=== PATIENT | female | born 1940 | race Caucasian/White ===

== ENCOUNTER 2023-05-05 15:57 | Emergency (ER) | payer MEDICARE, OTHER, SELFPAY ==
[2023-05-05 16:07] VITALS: BP 138/91; PULSE 100; RESP 18; TEMP 36.8; O2SAT 96; BMI 35.7
--- NOTE | 2023-05-05 16:52 | CT_ITS ---
The [address] [address] Patient Name: VAUGHN GERMAN MRN: [facility]:[id number] date: 1940 Sex: F Assigned Patient Location: ER Current Patient Location: ED.MAIN Accession/Order Number: [id number] Exam Date: 05/05/2023 16:48 Report Date: 05/05/2023 17:30 At the request of: ROC MCCALL Procedure: CT head/brain wo con EXAM: CT head/brain wo con HISTORY: head injury COMPARISON: None. TECHNIQUE: Unenhanced transaxial tomographic sections were obtained from the vertex through posterior fossa. FINDINGS: Diffuse age-related cerebral atrophy. 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 Mild bilateral chronic microvascular ischemic change. No midline shift, mass effect or intracranial hemorrhage. The mastoid air cells and visualized paranasal sinuses are clear. CT/CT head/brain wo con IMPRESSION: 1. No acute intracranial process. 2. 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 Mild bilateral chronic microvascular ischemic change. Electronically authenticated by: ABDI PENA Date: 05/05/2023 17:30
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
== END 2023-05-05 18:09 | disposition home or self-care (01) ==
PROVIDERS: Emergency Provider Emergency Medicine
DX: S09.8XXA Other specified injuries of head, initial encounter (principal); W22.8XXA Striking against or struck by other objects, initial encounter; Z87.891 Personal history of nicotine dependence
CPT/HCPCS: 70450; 99284

== ENCOUNTER 2024-10-29 12:58 | Outpatient (OUT) | payer MEDICARE, OTHER, SELFPAY ==
[2024-10-29 13:17] LABS: Hemoglobin 14.5 g/dL (12.0-16.0)
--- NOTE | 2024-10-29 14:19 | RT_ITS ---
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 Findings were considered accurate and reproducible. Both pre- and post-bronchodilator values utilized for spirometry. Spirometry (based on pre-bronchodilator values): -FEV1/FVC: Reduced @ 68% -FEV1: Normal @ 112% -FVC: Normal @ 120% -There is a positive bronchodilator resposne in LBF65-81%, but diagnostic and clinical significance is unclear. Lung volumes by plethysmography (based on pre-bronchodilator values): -RV: Normal @ 105% -TLC: Normal @ 107% Diffusion capacity: -DLCO: Moderate reduction @ 55% when corrected for Hb 14.5g/dL Flow-volume loop: -Mild obstructive pattern Impressions: Spirometry suggests mild obstruction. There is no significant bronchodilator response. Lung volumes are normal. There is a moderately reduced diffusion capacity. Overall study suggests COPD/emphysema. Clinica correlation required. Electronically Signed On 11-02-2024 10:12:00 EST by James Engle
[2024-10-29] MEDS: ALBUTEROL SULFATE 2.5 MG/3 ML VIAL NEB IH (14:20)
== END 2024-10-29 12:59 | disposition home or self-care (01) ==
LOC: CARD 12:58
PROVIDERS: PCP Internal Medicine; Visit Provider Family Medicine
DX: R05.3 Chronic cough (principal)
CPT/HCPCS: 36415; 85018; 94060; 94726; 94729

== ENCOUNTER 2024-12-20 07:35 | Outpatient (RCR) | payer MEDICARE, OTHER, SELFPAY ==
[2024-12-18 14:15] VITALS: BP 122/79; PULSE 71; TEMP 36.8; O2SAT 94
[2024-12-18] MEDS: ERTAPENEM SODIUM 1 GM, LIDOCAINE HCL/PF 3.2 ML IM (14:29)
[2024-12-19] MEDS: ERTAPENEM SODIUM 1 GM, LIDOCAINE HCL/PF 3.2 ML IM (17:40)
[2024-12-20 13:37] VITALS: BP 132/75; PULSE 76; TEMP 36.1; O2SAT 97
[2024-12-20] MEDS: ERTAPENEM SODIUM 1 GM, LIDOCAINE HCL/PF 3.2 ML IM (13:55)
--- NOTE | 2024-12-20 14:03 | PC.NURSE ---
Gabe Rogers called off last Friday (a week ago). He called off again on Friday and Friday this week. He had told me his leg was better swelling had decreased (this was last Friday) His reason for calling off today was his leg was swollen. I didn't get to talk with him but I wanted to let you know he was missing appts. His last dose should be 4/7, but that was before missing last 2 doses. 1:43 PM Message sent at 1:43 PM. 4 days left Message expires in 4 days. Message status isRkan Junior said still keep the same day, can you update me how it looks tomorrow? 1:46 PM Message sent at 1:46 PM. 4 days left Message expires in 4 days. You said ok
== END 2024-12-20 23:59 | disposition home or self-care (01) ==
LOC: INF 07:35
PROVIDERS: PCP Internal Medicine; Visit Provider Physician Assistant
DX: N39.0 Urinary tract infection, site not specified (principal); B96.1 Klebsiella pneumoniae [K. pneumoniae] as the cause of diseases classified elsewhere
CPT/HCPCS: 96372; J1335

== ENCOUNTER 2024-12-24 07:30 | Outpatient (RCR) | payer MEDICARE, OTHER, SELFPAY ==
[2024-12-21 13:33] VITALS: BP 103/71; PULSE 84; TEMP 35.9; O2SAT 94
[2024-12-21] MEDS: ERTAPENEM SODIUM 1 GM, LIDOCAINE HCL/PF 3.2 ML IM (14:11)
[2024-12-22 15:42] VITALS: BP 119/80; PULSE 75; TEMP 36.3; O2SAT 96
[2024-12-22] MEDS: ERTAPENEM SODIUM 1 GM, LIDOCAINE HCL/PF 3.2 ML IM (15:59)
[2024-12-23 14:05] VITALS: BP 130/89; PULSE 72; TEMP 36.3; O2SAT 96
[2024-12-23] MEDS: ERTAPENEM SODIUM 1 GM, LIDOCAINE HCL/PF 3.2 ML IM (14:10)
[2024-12-24 13:05] VITALS: BP 108/72; PULSE 80; TEMP 36.5; O2SAT 95
[2024-12-24] MEDS: ERTAPENEM SODIUM 1 GM, LIDOCAINE HCL/PF 3.2 ML IM (13:21)
== END 2025-01-19 23:59 | disposition home or self-care (01) ==
LOC: INF 07:30
PROVIDERS: PCP Internal Medicine; Visit Provider Physician Assistant
DX: N39.0 Urinary tract infection, site not specified (principal); B96.1 Klebsiella pneumoniae [K. pneumoniae] as the cause of diseases classified elsewhere
CPT/HCPCS: 96372; J1335